=== PATIENT | male | born 1950 | race Two or more races ===

== ENCOUNTER 2019-03-30 20:43 | Emergency (ER) | payer OTHER ==
[~2019-03-30] VITALS: Ht 180.3 cm; Wt 66.2 kg
[~2019-03-30 20:43] MED LIST: ALTACE1.25 M1 PO; CALCIUM1 TAB PO; NORVASC10 MG PO; SYNTHROID50 MCG PO; VITAMIN473 ML PO
[2019-03-31] MEDS ORDERED: LEVSIN/SL0.125 MG SL (05:26)
== END 2019-03-31 05:24 | disposition home or self-care (01) ==
LOC: ER 20:43
DX: K58.8 Other irritable bowel syndrome (principal); K57.30 Diverticulosis of large intestine without perforation or abscess without bleeding

== ENCOUNTER 2022-12-17 10:45 | Emergency (ER) | payer OTHER ==
[~2022-12-17] VITALS: Ht 180.3 cm; Wt 61.2 kg
[~2022-12-17 10:45] MED LIST changes: +LEVSIN/SL0.125 MG SL
== END 2022-12-17 15:42 | disposition home or self-care (01) ==
LOC: ER 10:45
DX: N50.89 Other specified disorders of the male genital organs (principal); N43.40 Spermatocele of epididymis, unspecified; Z88.6 Allergy status to analgesic agent; I10 Essential (primary) hypertension; E03.9 Hypothyroidism, unspecified

== ENCOUNTER 2022-12-21 12:38 | Outpatient (CLI) | payer OTHER | END 2022-12-21 12:46 | disposition home or self-care (01) | LOC: RAD 12:38 | DX: M79.641 Pain in right hand (principal); M79.642 Pain in left hand; M19.041 Primary osteoarthritis, right hand; M19.042 Primary osteoarthritis, left hand; M21.949 Unspecified acquired deformity of hand, unspecified hand; I10 Essential (primary) hypertension; M54.2 Cervicalgia ==

== ENCOUNTER 2023-11-28 14:42 | Outpatient (CLI) | payer OTHER | END 2023-11-28 14:48 | disposition home or self-care (01) | LOC: RAD 14:42 | PROVIDERS: ATTEND General Practice | DX: I11.9 Hypertensive heart disease without heart failure (principal); R00.1 Bradycardia, unspecified ==

== ENCOUNTER 2023-11-29 09:07 | Outpatient (CLI) | payer OTHER | END 2023-11-29 09:16 | disposition home or self-care (01) | LOC: SONOGRAMA 09:07 | PROVIDERS: ATTEND General Practice | DX: D64.9 Anemia, unspecified (principal); R19.5 Other fecal abnormalities; R94.4 Abnormal results of kidney function studies; I11.9 Hypertensive heart disease without heart failure ==

== ENCOUNTER 2023-12-03 09:18 | Outpatient (CLI) | payer OTHER | END 2023-12-03 09:19 | disposition home or self-care (01) | LOC: NUCLEAR 09:18 | PROVIDERS: ATTEND General Practice | DX: I11.9 Hypertensive heart disease without heart failure (principal); R00.1 Bradycardia, unspecified ==

== ENCOUNTER 2024-04-16 12:48 | Outpatient (CLI) | payer OTHER ==
[2024-04-16 14:15] LABS: ALBUMIN 3.9 gm/dL (3.4-5.0); CALCIUM 9.3 mg/dL (8.5-10.1); CREATININE SERUM 1.79 mg/dL (0.70-1.30); GFR 37.2; PHOSPHOROUS 2.6 mg/dL (2.5-4.9); POTASSIUM 4.65 mEq/L (3.5-5.1)
== END 2024-04-16 12:49 | disposition home or self-care (01) ==
LOC: LAB 12:48
PROVIDERS: ATTEND General Practice
DX: N18.32 Chronic kidney disease, stage 3b (principal); I13.10 Hypertensive heart and chronic kidney disease without heart failure, with stage 1 through stage 4 chronic kidney disease, or unspecified chronic kidney disease

== ENCOUNTER → 2024-04-21 08:52 | Outpatient (CLI) | payer OTHER | END | disposition home or self-care (01) | LOC: NUCLEAR 08:00 | PROVIDERS: ATTEND General Practice | DX: R00.1 Bradycardia, unspecified (principal); E03.9 Hypothyroidism, unspecified; I13.10 Hypertensive heart and chronic kidney disease without heart failure, with stage 1 through stage 4 chronic kidney disease, or unspecified chronic kidney disease ==

== ENCOUNTER 2024-07-27 11:39 | Emergency (ER) | payer OTHER ==
[~2024-07-27] VITALS: Ht 180.3 cm; Wt 62.6 kg
[2024-07-27] MEDS ORDERED: ACETAMINOPHEN 500 MG GEL..CAP PO ONE (16:00)
[2024-07-27] MEDS ORDERED: IPRATROPIUM/ALBUTEROL SULFATE 3 ML AMPUL.NEB IH ONE (16:00)
[2024-07-27 16:42] LABS: HEMATOCRIT 38.3 % (39.0-48.0); HEMOGLOBIN 13.2 g/dL (13-16.00); MEAN CELL VOLUME 96.1 fL (80.0-100.00); MEAN CORPUSCULAR HEMOGLOBIN 33.2 pg (27.00-32.0); MEAN CORPUSCULAR HGB CONC 34.5 g/dl (32.0-36.0); PLATELET COUNT 154 K/uL (150-450); RED BLOOD COUNT 3.98 M/uL (4.00-6.00); RED CELL DISTRIBUTION WIDTH 13.4 % (11.5-14.5)
[2024-07-27 18:15] LABS: ABG PH 7.447 (7.35-7.45); ABG PO2 100.2 mmHg (80-100); ABG pCO2 28.9 mmHg (35-45); BASE EXCESS -3.1 mmol/l; BICARBONATE 19.5 mmol/l (23-25); Tco2 20.4 mmol/l
[2024-07-27 18:16] LABS: allen test SATISFACTORY; o2 21 %; puncture site RADIAL RIGHT
== END 2024-07-27 17:48 | disposition home or self-care (01) ==
LOC: ER 11:41
PROVIDERS: General Practice
DX: J10.1 Influenza due to other identified influenza virus with other respiratory manifestations (principal); J45.909 Unspecified asthma, uncomplicated; E03.8 Other specified hypothyroidism; I10 Essential (primary) hypertension; Z88.6 Allergy status to analgesic agent; Z20.822 Contact with and (suspected) exposure to COVID-19

== ENCOUNTER 2024-10-23 11:45 | Outpatient (CLI) | payer OTHER | END 2024-10-23 11:50 | disposition home or self-care (01) | LOC: SONOGRAMA 11:45 | PROVIDERS: ATTEND General Practice | DX: E03.9 Hypothyroidism, unspecified (principal); E04.2 Nontoxic multinodular goiter; R10.0 Acute abdomen ==